=== PATIENT | male | born 1960 | race Caucasian/White ===

== ENCOUNTER 2018-09-22 09:12 | Emergency (ER) | payer OTHER ==
[~2018-09-22] VITALS: Ht 177.8 cm; Wt 81.7 kg
[2018-09-22 09:12] VITALS: BP 177/102
[2018-09-22] MEDS ORDERED: PREDNISONE 10 M10 M1 PO (10:01)
== END 2018-09-22 10:22 | disposition home or self-care (01) ==
LOC: ER 09:12
DX: L42 Pityriasis rosea (principal); F17.210 Nicotine dependence, cigarettes, uncomplicated